=== PATIENT | male | born 1960 | race Caucasian/White ===

== ENCOUNTER → 2021-02-07 | Outpatient (CLI) | payer MEDICARE | LOC: RAD 16:32 | DX: M06.9 Rheumatoid arthritis, unspecified (principal); Z79.899 Other long term (current) drug therapy; M85.88 Other specified disorders of bone density and structure, other site | CPT/HCPCS: 73130; 73630 ==

== ENCOUNTER → 2021-03-28 | Outpatient (CLI) | payer MEDICARE ==
[~2021-03-28] MED LIST: BETAMETHASONE TOP; CANDESARTAN-HC1 EACH PO; CLARITIN10 M2 PO; COMBIVENT RESPIM4 GM INH; LACTULOSE10 GM/15 M PO; LASIX 40 MG TAB40 MG PO; OMEPRAZOLE40 MG PO; POTASSIUM CHLO10 ME1 PO; PREDNISONE2.5 MG PO; TRIAMCINOLONE CREAM TOP
[2021-03-28 12:59] LABS: HEMOGLOBIN 13.8 gm/dl (14.0-17.5); RED BLOOD COUNT 4.94 M/UL (4.20-5.50); WHITE BLOOD COUNT 11.5 K/UL (4.5-11.0)
[2021-03-28 13:09] LABS: BUN/CREATININE RATIO 27 (0-10)
== END ==
LOC: EDSTATUS 11:00 → OPSV2 11:00
PROVIDERS: Orthopaedic Surgery
DX: Z01.818 Encounter for other preprocedural examination (principal); M17.11 Unilateral primary osteoarthritis, right knee
CPT/HCPCS: 36415; 71046; 80048; 85025; 93005

== ENCOUNTER 2021-04-11 09:52 | Day surgery (SDC) | payer MEDICARE, MEDICAID ==
[~2021-04-11] VITALS: Ht 175.3 cm; Wt 128.8 kg
[2021-04-11 10:44] LABS: BUN/CREATININE RATIO 26 (0-10)
--- NOTE | 2021-04-11 23:45 | NUR ---
polar ice on rt kmee with immobilizer in place.
--- NOTE | 2021-04-12 05:58 | NUR ---
POLAR ICE OFF
[2021-04-12 06:04] LABS: RED BLOOD COUNT 3.82 M/UL (4.20-5.50); WHITE BLOOD COUNT 14.7 K/UL (4.5-11.0)
[2021-04-12 06:07] LABS: BUN/CREATININE RATIO 20 (0-10)
[2021-04-12] MEDS ORDERED: ACETAMINOPHEN500 MG PO (10:19)
[2021-04-12] MEDS ORDERED: ASPIRIN EC81 MG PO (10:19)
--- NOTE | 2021-04-12 10:59 | NUR ---
notified dr. almonte, c/o jackson and received order to consult hospitalist. notified dr. espinosa and acknowledged
[2021-04-13 05:30] LABS: HEMOGLOBIN 9.8 gm/dl (14.0-17.5); WHITE BLOOD COUNT 11.7 K/UL (4.5-11.0)
[2021-04-13 05:45] LABS: RED BLOOD COUNT 3.41 M/UL (4.20-5.50)
[2021-04-13 05:46] LABS: BUN/CREATININE RATIO 21 (0-10)
[2021-04-13] MEDS ORDERED: FUROSEMIDE40 MG PO (12:26)
[2021-04-13] MEDS ORDERED: HYDROCHLOROTHIA25 MG PO (12:26)
[2021-04-13] MEDS ORDERED: VALSARTAN80 MG PO (12:26)
[2021-04-13] MEDS ORDERED: KLOR-CON 1010 MEQ PO (12:26)
== END 2021-04-13 15:45 | disposition home health service (06) ==
LOC: M/S 09:52 → OR 09:52 → EDSTATUS 13:00 → M/S 21:02 → OR 04-13 15:45
PROVIDERS: Orthopaedic Surgery
DX: M06.861 Other specified rheumatoid arthritis, right knee (principal); I10 Essential (primary) hypertension; E78.5 Hyperlipidemia, unspecified; M65.861 Other synovitis and tenosynovitis, right lower leg; M17.11 Unilateral primary osteoarthritis, right knee; I95.9 Hypotension, unspecified; F17.290 Nicotine dependence, other tobacco product, uncomplicated; Z79.82 Long term (current) use of aspirin; Z90.49 Acquired absence of other specified parts of digestive tract; Z90.79 Acquired absence of other genital organ(s); Z73.6 Limitation of activities due to disability; Z98.61 Coronary angioplasty status; Z88.6 Allergy status to analgesic agent; Z20.822 Contact with and (suspected) exposure to COVID-19
CPT/HCPCS: 36415; 73560; 80048; 85025; 86850; 86900; 86901; 97110-GP-CQ; 97116-GP-CQ; 97162; 97166; 97530-GP-CQ; 97535; C1776; J0171; J0690; J1100; J1170; J2001; J2405; J2704; J2795; J3010; J3370; J7120

== ENCOUNTER → 2021-07-12 | Outpatient (CLI) | payer MEDICARE ==
[~2021-07-12] MED LIST changes: +ACETAMINOPHEN500 MG PO; +ASPIRIN EC81 MG PO; +FUROSEMIDE40 MG PO; +HYDROCHLOROTHIA25 MG PO; +KLOR-CON 1010 MEQ PO; +POTASSIUM CHLO10 MEQ PO; +VALSARTAN80 MG PO
[2021-07-12 11:30] LABS: HEMOGLOBIN 12.9 gm/dl (14.0-17.5); RED BLOOD COUNT 4.57 M/UL (4.20-5.50); WHITE BLOOD COUNT 10.5 K/UL (4.5-11.0)
[2021-07-12 12:24] LABS: BUN/CREATININE RATIO 15 (0-10)
== END ==
LOC: EDSTATUS 10:00 → OPSV2 10:00
PROVIDERS: Orthopaedic Surgery
DX: Z01.818 Encounter for other preprocedural examination (principal); M06.9 Rheumatoid arthritis, unspecified; R94.31 Abnormal electrocardiogram [ECG] [EKG]; I25.2 Old myocardial infarction
CPT/HCPCS: 71046; 80048; 83036; 85025; 85652; 86140; 93005

== ENCOUNTER → 2021-07-24 | Outpatient (CLI) | payer MEDICARE, MEDICAID ==
[~2021-07-24] MED LIST changes: +ASPIRIN 325MG325 MG PO; +BETAMETHASONE D30 ML TP; +ROXICODONE5 MG PO; +VITAMIN D 40400 UNIT GT
[2021-07-24 14:23] LABS: BUN/CREATININE RATIO 23 (0-10)
== END ==
LOC: LAB 13:35
PROVIDERS: Orthopaedic Surgery
DX: Z01.812 Encounter for preprocedural laboratory examination (principal); M17.12 Unilateral primary osteoarthritis, left knee
CPT/HCPCS: 80048; 86850; 86900; 86901